=== PATIENT | female | born 2000 | race Caucasian/White ===

== ENCOUNTER → 2024-04-09 10:31 | Outpatient (BNVA) | payer SELFPAY | PROVIDERS: Visit Provider Registered Nurse | DX: Z02.79 Encounter for issue of other medical certificate (principal) ==

== ENCOUNTER 2025-08-02 19:47 | Inpatient (IN) | payer OTHER, SELFPAY ==
[2025-08-02 19:59] VITALS: BP 146/81; BP 158/90; PULSE 81; PULSE 89; RESP 19; TEMP 36.7; O2SAT 95; O2SAT 96; BMI 36.3
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
[2025-08-02 20:52] LABS: MANUAL DIFF FLAG NO
[2025-08-02 20:54] LABS: Hematocrit 44.9 % (42.0-52.0); Hemoglobin 15.7 g/dl (14.0-18.0); Imm Gran Abs Auto 0.05 X10*3/uL (0.00-0.03); Imm Gran Pct Auto 0.6 % (0.0-0.4); Lymphocytes Absolute Auto 1.9 X10*3/uL (1.2-4.9); Mean Corpuscular HGB Conc 35.0 g/dl (31.0-36.0); Mean Corpuscular Hemoglobin 30.5 pg (27.0-33.0); Mean Corpuscular Volume 87.4 fL (80.0-98.0); NRBC Abs Auto 0.000 X10*3/uL (0.0-0.012); NRBC Pct Auto 0.0 /100WBC (0.0-0.2); Platelet Count 256 X10*3/uL (160-400); Red Blood Count 5.14 X10*6/uL (4.60-5.80); White Blood Count 8.7 X10*3/uL (4.8-10.8)
[2025-08-02 21:03] LABS: Cannabinoid Screen Urine Not Detected (Not Detect)
[2025-08-02 21:11] LABS: Alanine Aminotransferase 34 U/L (0-40); Albumin Level 5.0 g/dL (3.5-5.0); Alkaline Phosphatase 56 U/L (39-117); Anion Gap 16 (12-20); Aspartate Amino Transferase 37 U/L (5-37); Blood Urea Nitrogen 14 mg/dL (9-16); Calcium 10.0 mg/dL (8.4-10.2); Carbon Dioxide 26 mmol/L (22-29); Chloride 107 mmol/L (96-108); Creatinine Clr Calc Pharmacy 123.9; Estimated Glomerular Filt Rate > 60; Magnesium 2.1 mg/dL (1.6-2.6); Potassium 4.1 mmol/L (3.3-5.1); Sodium 145 mmol/L (135-145); Total Protein 7.6 g/dL (6.5-8.0)
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
--- OUTSIDE RECORDS SUMMARY | 2025-08-02 22:17 | XMS_ITS | Clinical Summary ---
Author Organization [facility] Address [address] [place] [id number] Phone Care Team Providers Care Mds Manager Name Role Phone Kassie Mayo MD Primary Care Provider + Medications sildenafiL (REVATIO) 20 mg tablet Take 1 tablet (20 mg total) by mouth 3 (three) times a day. 20 tablet 3 02/28/2021 Active Social History Tobacco Use Types Packs/Day Years Used Date Smoking Tobacco: Never Assessed Education Answer Date Recorded Are you interested in more education? Not on ke e 03/02/2023 Are you concerned about learning? Not on file 03/02/2023 No 03/02/2023 No 03/02/2023 Digital Access Answer Date Recorded No 03/30/2023 No 03/30/2023 No 03/30/2023 Reliable internet access at home? Not on file 03/30/2023 Device with a working camera? Not on file Sex and Gender Information Value Date Recorded Sex Assigned at Male 02/15/2021 11:48 AM EDT Legal Sex Male 11:14 AM EDT Gender Identity Male 02/15/2021 11:48 AM EDT Sexual Orientation Straight 02/15/2021 11 :48 AM EDT Last Filed Vital Signs Vital Sign Reading Time Taken Comments Blood Pressure 116/76 02/28/2021 2:07 PM EDT Pulse 81 02/28/2021 2:07 PM EDT Temperature - - Respiratory Rate - - Oxygen Saturation 96% 02/28/2021 2:07 PM EDT Inhaled Oxygen Concentration - - Weight - - Height - - Body Mass Index - - Plan of Treatment Health Maintenance Due Date Last Done Comments Adult Td,Tdap Booster 2000 DEPRESSION SCREENING 2012 SMOKING Hx and SMOKELESS TOBACCO SCREENING 02/08/2013 HPV VACCINES (1 - Male 3-dos e series) 02/08/2015 HEPATITIS C SCREENING 02/08/2018 HIV ONE-TIME SCREENING (18-6 5 YEARS) 02/08/2018 INFLUENZA VACCINE (#1) 2025 COVID-19 VACCINE (2 - 2024-2 6 season) 2025 03/22/2021 MENINGOCOCCAL VACCINES (B) Completed 08/28, 07/15/2017 HEPATITIS A VACCINES Aged Out No long er eligible based on patient's age to complete this topic HIB VACCINES Aged Out No longer eligi ble based on patient's age to complete this topic MENINGOCOCCAL VACCINES (ACWY) Aged Out No longer eligible based on patient's age to complete this topic PNEUMOCOCCAL VACCINES (0-49 years) Aged Out No longer eligible b ased on patient's age to complete this topic Medical Devices Not on file Insurance [employer] [facility] Care Teams Mds Manager Relationship Specialty Start Date End Date Kassie Mayo MD [address] [place] [id number] PCP - General Adolescent Medicine 02/15/21 Additional Source Comments The information contained in this document represents components of the legal health record. It is not the complete legal health record.[facility]
[2025-08-03 07:00] VITALS: BP 122/53; PULSE 62; RESP 17; TEMP 36.7; O2SAT 96
--- NOTE | 2025-08-03 08:45 | ECG_ITS ---
Test Reason : R/O PROLONGED QT Blood Pressure : */* mmHG Vent. Rate : 71 BPM Atrial Rate : 71 BPM P-R Int : 174 ms QRS Dur : 100 ms QT Int : 410 ms P-R-T Axes : 38 47 18 degrees QTcB Int : 445 ms Normal sinus rhythm Normal ECG No previous ECGs available Referred By: Latrice Riggins Electronically Signed By: SILVER BARTHOLOMEW
--- NOTE | 2025-08-03 09:13 | PC.NURSE ---
Assumed care, report received. Pt sleeps in, he is calm and cooperative for an EKG, and is given his breakfast. he continues to endorse SI and feels angry and depressed.
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
[2025-08-03 14:10] VITALS: BP 138/81; PULSE 78; RESP 17; TEMP 36.6; O2SAT 96
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
--- NOTE | 2025-08-03 17:05 | PC.NURSE ---
pt declined flu vaccine at this time
[2025-08-03 19:10] VITALS: BP 134/86; PULSE 82; RESP 16; TEMP 36.9; O2SAT 94
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
[2025-08-04 07:51] VITALS: BP 107/53; PULSE 63; RESP 16; TEMP 36.7; O2SAT 97
[2025-08-04 08:26] LABS: Hemoglobin A1C 125.2650 umol/L; Total Hemoglobin (HGBA1C) 4024.2166 umol/L
--- NOTE | 2025-08-04 16:12 | HO.PSYCHPN ---
Subjective Subjective Date of Service: 08/04/25 Reason For Visit: si with plan Subjective Notes: Conditional Voluntary Interim History: Keeping to self. Patient reports feeling depressed ; pt stated, I've been feeling this way since I was 5. When I'm in stressful situations it gets too much and I feel suicidal . He reports passive suicidal ideation at this time; pt stated, I'd be okay if I didnt' wake up . denies HI/VH/AH. He reports poor sleep last night. [place] level to be drawn on 08/08/25. Pt retracted 3 day notice but is requesting to be discharged on Saturday08/09/25 so he can return to work. Continue tx plan. Medication Compliance: Yes Side effects from medications: No Attending Groups: No Mental Status Exam Mental Status Exam Narrative: Pt is alert and oriented; behavior is cooperative and calm; dressed in casual attire; mood is described as depressed ; eye contact appropriate; Speech is normal rate, volume and not pressured; thought process is organized; Thought content is on tx; denies HI/VH/AH. Passive SI. Diagnostics Vital Signs (24Hr): Vital Signs - 24 hr 08/03/25 19:10 08/04/25 07:51 Temperature 98.5 F 98.1 F Pulse Rate 82 63 Respiratory Rate 16 16 Blood Pressure 134/86 107/53 L Pulse Oximetry 94 97 Oxygen Delivery Method Room Air Room Air BMI result Body Mass Index 36.3 Labs 08/02/25 20:40 08/02/25 20:40 Labs: Laboratory Results - last 48 hr 08/02/25 08/02/25 08/04/25 20:40 20:41 07:59 WBC 8.7 RBC 5.14 Hgb 15.7 Hct 44.9 MCV 87.4 MCH 30.5 MCHC 35.0 RDW 13.3 Plt Count 256 MPV 8.3 L Immature Gran % (Auto) 0.6 H Neut % (Auto) 65.5 Lymph % (Auto) 21.9 [place] % (Auto) 6.6 Eos % (Auto) 4.9 H Baso % (Auto) 0.5 Lymph # (Auto) 1.9 [place] # (Auto) 0.6 Eos # (Auto) 0.4 Baso # (Auto) 0.0 Abs Immat Gran (auto) 0.05 H Absolute Neuts (auto) 5.7 Absolute Nucleated RBC 0.000 Nucleated RBC % (auto) 0.0 Sodium 145 Potassium 4.1 Chloride 107 Carbon Dioxide 26 Anion Gap 16 BUN 14 Creatinine 1.19 Estim Creat Clear Calc 123.9 Estimated GFR > 60 Random Glucose 97 Estimat Average Glucose 97 Hemoglobin A1c % 5.0 Calcium 10.0 Magnesium 2.1 Total Bilirubin 0.5 AST 37 ALT 34 Alkaline Phosphatase 56 Total Protein 7.6 Albumin 5.0 Urine Opiates Screen Not Detected Ur Buprenorphine Scrn Not Detected Ur Oxycodone Screen Not Detected Urine Methadone Screen Not Detected Urine Fentanyl Screen Not Detected Ur Barbiturates Screen Not Detected Ur Phencyclidine Scrn Not Detected Ur Amphetamines Screen Not Detected U Benzodiazepines Scrn Not Detected Urine Cocaine Screen Not Detected U Marijuana (THC) Screen Not Detected Ethyl Alcohol < 10 Medications Medications Current Medications Acetaminophen (Acetaminophen 325 Mg Tablet) 650 mg PO Q6H PRN PRN Reason: Headache/Pain, Scale 1-10 Al Hydroxide/Mg Hydroxide (Magnesium Hydrox/Alum Hydrox 30 Ml Oral.Susp) 30 ml PO Q6H PRN PRN Reason: Heartburn/Nausea Hydroxyzine HCl (Hydroxyzine Hcl 25 Mg Tablet) 25 mg PO Q6H PRN PRN Reason: mild anxiety [place] Carbonate ([place] Carbonate 300 Mg Capsule) 600 mg PO BEDTIME [facility] Last Admin: 08/03/25 21:26 Dose: 600 mg Magnesium Hydroxide (Milk Of Magnesia 30 Ml Oral.Susp) 30 ml PO DAILY PRN PRN Reason: Constipation Nicotine (Nicotine 21 Mg Patch.Td24) 21 mg TRANSDERMA DAILY PRN PRN Reason: nicotine craving Nicotine Polacrilex (Nicotine Polacrilex 2 Mg Gum) 2 mg BUCCAL Q2H PRN PRN Reason: Nicotine Cravings Olanzapine (Olanzapine 5 Mg Tablet) 5 mg PO BID PRN PRN Reason: agitation Last Admin: 08/04/25 04:30 Dose: 5 mg Omeprazole (Omeprazole 20 Mg Capsule.Dr) 20 mg PO DAILY@0630 [facility] Last Admin: 08/04/25 06:47 Dose: 20 mg Trazodone HCl (Trazodone Hcl 50 Mg Tablet) 50 mg PO BEDTIME MRX1 PRN PRN Reason: Insomnia Allergies Allergies Allergy/AdvReac Type Severity Reaction Status Date / Time amoxicillin Allergy Facial Verified 08/02/25 20:17 Swelling seafood Allergy Facial Verified 08/02/25 20:17 Swelling Assessment & Plan Assessment & Plan (1) MDD (major depressive disorder): Status: Acute Code(s): F32.9 - Major depressive disorder, single episode, unspecified (2) PTSD (post-traumatic stress disorder): Status: Acute Code(s): F43.10 - Post-traumatic stress disorder, unspecified (3) Borderline personality disorder: Status: Acute Code(s): F60.3 - Borderline personality disorder (4) Suicidal ideation: Status: Acute Code(s): R45.851 - Suicidal ideations (5) ADHD: Status: Acute Code(s): F90.9 - Attention-deficit hyperactivity disorder, unspecified type Plan Patient is a 25 year-old, , single [place] speaking with history, PTSD, MDD, borderline personality disorder, ADHD who was BIBA secondary to endorsing SI with plan to drive into a guard rail. Patient was googling how fast to drive in order to end the life. Reports chronic depression, stemming from 5 years old. Patient has been struggling with chronic depression since the age of 5. Recently stress at work and a break up with the in the past year as precipitants. Reports multiple suicide attempts in the past 5, 12, 16, 20, and 21. He attempted to overdose in the past, tried to hang himself with a belt, and tried choking himself out and suffocating himself as his prior attempts. History of hospitalization in the past. Patient currently with a friend-Hayley and he has been living with her for a past 5 months. Housing is considered being stable. Per Hayley, patient has is sex and porn addiction as he has been working on this with his outpatient therapist. Patient can display Predator behaviors and often hug and kiss female without the permission. Upon assessment, patient reports some mood swing, impulsive with racing thoughts, he can be happy happy and then sad. Reported that he can be awake more than 24 hours without sleep, and then sleep a lot. Same with eating habits. Patient reported that he either not eating for couple of days or eating too much. It seems to me that patient having some mood component of Bipolar that he can get benefit from lithium which also target the chronic SI. Therefore, I discussed with patient regarding lithium, he is receptive. Future plan will possible start on SSRI for sexually hyperactivity asked for now we do not know if he has displaced any manic episode before. The symptoms he expressed and reports seems not related to ADHD. He has been trying a couple ADHD medication when he was younger, none of them working, they are in fact make him agitated. Formulation/clinical reasoning: increasing in depression, chronic SI with most recent plan to drive his car fast to a guard rails, impulsive, multiple suicide attempts in the past, has sex and porn addiction that could put him at risk. Hx of PTSD, ADHD, BPD, MDD, ?bipolar with mood swings, driving recklessly. Given the above information, patient would be benefit to be in restrictive environment for his own safety, the safety of others, medication management, and refer patient to psychiatric services to continue with medication as aftercare. 08/03/25: start on [place] 600mg at HS for mood Will check level in 5 days. Future plan: once mood is more stable, would benefit on SSRI for sexually addiction/hyperactivies. Discuss with patient regarding medication indication and possible side effects discuss. Patient is receptive with the plan. Patient also educated on Negative effects on NSAIDs combination with [place]. Will order some lab works: CMP, TSH with reflex T4. A1C. Will continue to monitor for Kidney functions. 08/04: Keeping to self. Patient reports feeling depressed ; pt stated, I've been feeling this way since I was 5. When I'm in stressful situations it gets too much and I feel suicidal . He reports passive suicidal ideation at this time; pt stated, I'd be okay if I didnt' wake up . denies HI/VH/AH. He reports poor sleep last night. [place] level to be drawn on 08/08/25. Pt retracted 3 day notice but is requesting to be discharged on Saturday08/09/25 so he can return to work. Continue tx plan. Plan Patient on 15 minute checks for safety. Admitted to M3. signed 3 day notice. Potential to retract for further treatment. Work with treatment team to do collateral Possible of Bipolar, with chronic SI: lithium would be a good fit Patient educated on: diagnosis, medication risk/benefits and therapeutic strategies Reason for continued inpatient stay Substantial Risk for: med/psych decompensation Time Spent With Patient Time: Total time managing care of this patient today _20___ minutes.
[2025-08-04 19:20] VITALS: BP 111/57; PULSE 56; RESP 16; TEMP 36.7; O2SAT 95
[2025-08-05 07:00] VITALS: BMI 37.1
[2025-08-05 07:45] VITALS: BP 106/60; PULSE 54; RESP 16; TEMP 36.8; O2SAT 98
--- NOTE | 2025-08-05 08:46 | HO.PSYCHPN ---
Subjective Subjective Date of Service: 08/05/25 Reason For Visit: si with plan Subjective Notes: 3 Day Interim History: Active on unit. attending groups. Patient reports feeling depressed and anxious ; he reports feeling home sick today. denies any side effects from medications. denies HI/VH/AH. He reports poor sleep last night; started on Trazodone 100mg PO bedtime;risks/benefits reviewed, pt agreed to trial. He reports passive SI with no plan. Medication Compliance: Yes Side effects from medications: No Attending Groups: Yes Mental Status Exam Mental Status Exam Narrative: Pt is alert and oriented; behavior is cooperative and calm; dressed in casual attire; mood is described as depressed and anxious ; eye contact appropriate; Speech is normal rate, volume and not pressured; thought process is organized; Thought content is on tx; denies HI/VH/AH. Passive SI. Diagnostics Vital Signs (24Hr): Vital Signs - 24 hr 08/04/25 19:20 08/05/25 07:45 Temperature 98.1 F 98.3 F Pulse Rate 56 54 Respiratory Rate 16 16 Blood Pressure 111/57 L 106/60 Pulse Oximetry 95 98 Oxygen Delivery Method Room Air Room Air BMI result Body Mass Index 36.3 Labs 08/02/25 20:40 08/05/25 08:24 Labs: Laboratory Results - last 48 hr 08/04/25 07:59 Estimat Average Glucose 97 Hemoglobin A1c % 5.0 Medications Medications Current Medications Acetaminophen (Acetaminophen 325 Mg Tablet) 650 mg PO Q6H PRN PRN Reason: Headache/Pain, Scale 1-10 Al Hydroxide/Mg Hydroxide (Magnesium Hydrox/Alum Hydrox 30 Ml Oral.Susp) 30 ml PO Q6H PRN PRN Reason: Heartburn/Nausea Hydroxyzine HCl (Hydroxyzine Hcl 25 Mg Tablet) 25 mg PO Q6H PRN PRN Reason: mild anxiety [place] Carbonate ([place] Carbonate 300 Mg Capsule) 600 mg PO BEDTIME [facility] Last Admin: 08/04/25 23:28 Dose: 600 mg Magnesium Hydroxide (Milk Of Magnesia 30 Ml Oral.Susp) 30 ml PO DAILY PRN PRN Reason: Constipation Nicotine (Nicotine 21 Mg Patch.Td24) 21 mg TRANSDERMA DAILY PRN PRN Reason: nicotine craving Nicotine Polacrilex (Nicotine Polacrilex 2 Mg Gum) 2 mg BUCCAL Q2H PRN PRN Reason: Nicotine Cravings Olanzapine (Olanzapine 5 Mg Tablet) 5 mg PO BID PRN PRN Reason: agitation Last Admin: 08/04/25 04:30 Dose: 5 mg Omeprazole (Omeprazole 20 Mg Capsule.) 20 mg PO DAILY@0630 [facility] Last Admin: 08/05/25 06:38 Dose: 20 mg Trazodone HCl (Trazodone Hcl 50 Mg Tablet) 50 mg PO BEDTIME MRX1 PRN PRN Reason: Insomnia Allergies Allergies Allergy/AdvReac Type Severity Reaction Status Date / Time amoxicillin Allergy Facial Verified 08/02/25 20:17 Swelling seafood Allergy Facial Verified 08/02/25 20:17 Swelling Assessment & Plan Assessment & Plan (1) MDD (major depressive disorder): Status: Acute Code(s): F32.9 - Major depressive disorder, single episode, unspecified (2) PTSD (post-traumatic stress disorder): Status: Acute Code(s): F43.10 - Post-traumatic stress disorder, unspecified (3) Borderline personality disorder: Status: Acute Code(s): F60.3 - Borderline personality disorder (4) Suicidal ideation: Status: Acute Code(s): R45.851 - Suicidal ideations (5) ADHD: Status: Acute Code(s): F90.9 - Attention-deficit hyperactivity disorder, unspecified type Plan Patient is a 25 year-old, , single [place]an speaking with history, PTSD, MDD, borderline personality disorder, ADHD who was BIBA secondary to endorsing SI with plan to drive into a guard rail. Patient was googling how fast to drive in order to end the life. Reports chronic depression, stemming from 5 years old. Patient has been struggling with chronic depression since the age of 5. Recently stress at work and a break up with the in the past year as precipitants. Reports multiple suicide attempts in the past 5, 12, 16, 20, and 21. He attempted to overdose in the past, tried to hang himself with a belt, and tried choking himself out and suffocating himself as his prior attempts. History of hospitalization in the past. Patient currently with a friend-Hayley and he has been living with her for a past 5 months. Housing is considered being stable. Per Hayley, patient has is sex and porn addiction as he has been working on this with his outpatient therapist. Patient can display Predator behaviors and often hug and kiss female without the permission. Upon assessment, patient reports some mood swing, impulsive with racing thoughts, he can be happy happy and then sad. Reported that he can be awake more than 24 hours without sleep, and then sleep a lot. Same with eating habits. Patient reported that he either not eating for couple of days or eating too much. It seems to me that patient having some mood component of Bipolar that he can get benefit from lithium which also target the chronic SI. Therefore, I discussed with patient regarding lithium, he is receptive. Future plan will possible start on SSRI for sexually hyperactivity asked for now we do not know if he has displaced any manic episode before. The symptoms he expressed and reports seems not related to ADHD. He has been trying a couple ADHD medication when he was younger, none of them working, they are in fact make him agitated. Formulation/clinical reasoning: increasing in depression, chronic SI with most recent plan to drive his car fast to a guard rails, impulsive, multiple suicide attempts in the past, has sex and porn addiction that could put him at risk. Hx of PTSD, ADHD, BPD, MDD, ?bipolar with mood swings, driving recklessly. Given the above information, patient would be benefit to be in restrictive environment for his own safety, the safety of others, medication management, and refer patient to psychiatric services to continue with medication as aftercare. 08/03/25: start on [place] 600mg at HS for mood Will check level in 5 days. Future plan: once mood is more stable, would benefit on SSRI for sexually addiction/hyperactivies. Discuss with patient regarding medication indication and possible side effects discuss. Patient is receptive with the plan. Patient also educated on Negative effects on NSAIDs combination with [place]. Will order some lab works: CMP, TSH with reflex T4. A1C. Will continue to monitor for Kidney functions. 08/04: Keeping to self. Patient reports feeling depressed ; pt stated, I've been feeling this way since I was 5. When I'm in stressful situations it gets too much and I feel suicidal . He reports passive suicidal ideation at this time; pt stated, I'd be okay if I didnt' wake up . denies HI/VH/AH. He reports poor sleep last night. [place] level to be drawn on 08/08/25. Pt retracted 3 day notice but is requesting to be discharged on Saturday08/09/25 so he can return to work. Continue tx plan. 08/05: Active on unit. attending groups. Patient reports feeling depressed and anxious ; he reports feeling home sick today. denies any side effects from medications. denies HI/VH/AH. He reports poor sleep last night; started on Trazodone 100mg PO bedtime;risks/benefits reviewed, pt agreed to trial. He reports passive SI with no plan. Plan Patient on 15 minute checks for safety. Admitted to [facility]. signed 3 day notice. Potential to retract for further treatment. Work with treatment team to do collateral Possible of Bipolar, with chronic SI: lithium would be a good fit Patient educated on: diagnosis, medication risk/benefits and therapeutic strategies Reason for continued inpatient stay Substantial Risk for: med/psych decompensation Time Spent With Patient Time: Total time managing care of this patient today _20___ minutes.
[2025-08-05 09:09] LABS: Alanine Aminotransferase 39 U/L (0-40); Albumin Level 4.8 g/dL (3.5-5.0); Alkaline Phosphatase 60 U/L (39-117); Anion Gap 11 (12-20); Aspartate Amino Transferase 42 U/L (5-37); Blood Urea Nitrogen 12 mg/dL (9-16); Calcium 9.6 mg/dL (8.4-10.2); Carbon Dioxide 28 mmol/L (22-29); Chloride 106 mmol/L (96-108); Cholesterol 206 mg/dL (<200); Creatinine Clr Calc Pharmacy 130.5; Estimated Glomerular Filt Rate > 60; Free T4 (Free Thyroxine) 0.80 ng/dL (0.71-1.85); HDL Cholesterol 32 mg/dL (>40); Potassium 4.2 mmol/L (3.3-5.1); Sodium 141 mmol/L (135-145); Thyroid Stimulating Hormone 0.41 uIU/mL (0.32-4.0); Total Protein 7.8 g/dL (6.5-8.0); Triglycerides 591 mg/dL (<150)
[2025-08-05 19:48] VITALS: BP 134/73; PULSE 74; RESP 16; TEMP 36.7; O2SAT 96
[2025-08-06 07:10] VITALS: BP 104/55; PULSE 60; RESP 16; TEMP 36.5; O2SAT 96
--- NOTE | 2025-08-06 08:48 | P.PNPSI_ITS ---
Subjective Subjective Date of Service: 08/06/25 Reason For Visit: si with plan Subjective Notes: 3 Day Interim History: Active on unit. attending groups. Patient reports feeling better today; pt stated, I feel calmer on the medication. I'm not feeling suicidal . denies SI/HI/VH/AH. 3 day up on 08/09/25. [place] level ordered for 08/08/25. Continue tx plan. Medication Compliance: Yes Side effects from medications: No Attending Groups: Yes Mental Status Exam Mental Status Exam Narrative: Pt is alert and oriented; behavior is cooperative and calm; dressed in casual attire; mood is described as calmer ; eye contact appropriate; Speech is normal rate, volume and not pressured; thought process is organized; Thought content is on tx; denies SI/HI/VH/AH. Diagnostics Vital Signs (24Hr): Vital Signs - 24 hr 08/05/25 19:48 08/06/25 07:10 Temperature 98.1 F 97.7 F Pulse Rate 74 60 Respiratory Rate 16 16 Blood Pressure 134/73 104/55 L Pulse Oximetry 96 96 Oxygen Delivery Method Room Air Room Air BMI result Body Mass Index 37.1 Labs 08/02/25 20:40 08/05/25 08:24 Labs: Laboratory Results - last 48 hr 08/05/25 08:24 Sodium 141 Potassium 4.2 Chloride 106 Carbon Dioxide 28 Anion Gap 11 L BUN 12 Creatinine 1.13 Estim Creat Clear Calc 130.5 Estimated GFR > 60 Random Glucose 88 Calcium 9.6 Total Bilirubin 0.4 AST 42 H ALT 39 Alkaline Phosphatase 60 Total Protein 7.8 Albumin 4.8 Triglycerides 591 H Cholesterol 206 H LDL Cholesterol, Calc TNP HDL Cholesterol 32 L TSH 0.41 Free T4 0.80 Medications Medications Current Medications Acetaminophen (Acetaminophen 325 Mg Tablet) 650 mg PO Q6H PRN PRN Reason: Headache/Pain, Scale 1-10 Al Hydroxide/Mg Hydroxide (Magnesium Hydrox/Alum Hydrox 30 Ml Oral.Susp) 30 ml PO Q6H PRN PRN Reason: Heartburn/Nausea Clonidine HCl (Clonidine Hcl 0.1 Mg Tablet) 0.1 mg PO BID PRN; Protocol PRN Reason: Anxiety [place] Carbonate ([place] Carbonate 300 Mg Capsule) 600 mg PO BEDTIME [facility] Last Admin: 08/05/25 22:05 Dose: 600 mg Magnesium Hydroxide (Milk Of Magnesia 30 Ml Oral.Susp) 30 ml PO DAILY PRN PRN Reason: Constipation Nicotine (Nicotine 21 Mg Patch.Td24) 21 mg TRANSDERMA DAILY PRN PRN Reason: nicotine craving Nicotine Polacrilex (Nicotine Polacrilex 2 Mg Gum) 2 mg BUCCAL Q2H PRN PRN Reason: Nicotine Cravings Omeprazole (Omeprazole 20 Mg Capsule.Dr) 20 mg PO DAILY@0630 [facility] Last Admin: 08/06/25 06:49 Dose: 20 mg Trazodone HCl (Trazodone Hcl 100 Mg Tablet) 100 mg PO BEDTIME [facility] Last Admin: 08/05/25 22:05 Dose: 100 mg Allergies Allergies Allergy/AdvReac Type Severity Reaction Status Date / Time amoxicillin Allergy Facial Verified 08/02/25 20:17 Swelling seafood Allergy Facial Verified 08/02/25 20:17 Swelling Assessment & Plan Assessment & Plan (1) MDD (major depressive disorder): Status: Acute Code(s): F32.9 - Major depressive disorder, single episode, unspecified (2) PTSD (post-traumatic stress disorder): Status: Acute Code(s): F43.10 - Post-traumatic stress disorder, unspecified (3) Borderline personality disorder: Status: Acute Code(s): F60.3 - Borderline personality disorder (4) Suicidal ideation: Status: Acute Code(s): R45.851 - Suicidal ideations (5) ADHD: Status: Acute Code(s): F90.9 - Attention-deficit hyperactivity disorder, unspecified type Plan Patient is a 25 year-old, , single [place]ian speaking with history, PTSD, MDD, borderline personality disorder, ADHD who was BIBA secondary to endorsing SI with plan to drive into a guard rail. Patient was googling how fast to drive in order to end the life. Reports chronic depression, stemming from 5 years old. Patient has been struggling with chronic depression since the age of 5. Recently stress at work and a break up with the in the past year as precipitants. Reports multiple suicide attempts in the past 5, 12, 16, 20, and 21. He attempted to overdose in the past, tried to hang himself with a belt, and tried choking himself out and suffocating himself as his prior attempts. History of hospitalization in the past. Patient currently with a friend-Hayley and he has been living with her for a past 5 months. Housing is considered being stable. Per Hayley, patient has is sex and porn addiction as he has been working on this with his outpatient therapist. Patient can display Predator behaviors and often hug and kiss female without the permission. Upon assessment, patient reports some mood swing, impulsive with racing thoughts, he can be happy happy and then sad. Reported that he can be awake more than 24 hours without sleep, and then sleep a lot. Same with eating habits. Patient reported that he either not eating for couple of days or eating too much. It seems to me that patient having some mood component of Bipolar that he can get benefit from lithium which also target the chronic SI. Therefore, I discussed with patient regarding lithium, he is receptive. Future plan will possible start on SSRI for sexually hyperactivity asked for now we do not know if he has displaced any manic episode before. The symptoms he expressed and reports seems not related to ADHD. He has been trying a couple ADHD medication when he was younger, none of them working, they are in fact make him agitated. Formulation/clinical reasoning: increasing in depression, chronic SI with most recent plan to drive his car fast to a guard rails, impulsive, multiple suicide attempts in the past, has sex and porn addiction that could put him at risk. Hx of PTSD, ADHD, BPD, MDD, ?bipolar with mood swings, driving recklessly. Given the above information, patient would be benefit to be in restrictive environment for his own safety, the safety of others, medication management, and refer patient to psychiatric services to continue with medication as aftercare. Plan Patient on 15 minute checks for safety. Admitted to [facility]. signed 3 day notice. Potential to retract for further treatment. Work with treatment team to do collateral Possible of Bipolar, with chronic SI: lithium would be a good fit 08/03/25: start on [place] 600mg at HS for mood Will check level in 5 days. Future plan: once mood is more stable, would benefit on SSRI for sexually addiction/hyperactivies. Discuss with patient regarding medication indication and possible side effects discuss. Patient is receptive with the plan. Patient also educated on Negative effects on NSAIDs combination with [place]. Will order some lab works: CMP, TSH with reflex T4. A1C. Will continue to monitor for Kidney functions. 08/04: Keeping to self. Patient reports feeling depressed ; pt stated, I've been feeling this way since I was 5. When I'm in stressful situations it gets too much and I feel suicidal . He reports passive suicidal ideation at this time; pt stated, I'd be okay if I didnt' wake up . denies HI/VH/AH. He reports poor sleep last night. [place] level to be drawn on 08/08/25. Pt retracted 3 day notice but is requesting to be discharged on Saturday08/09/25 so he can return to work. Continue tx plan. 08/05: Active on unit. attending groups. Patient reports feeling depressed and anxious ; he reports feeling home sick today. denies any side effects from medications. denies HI/VH/AH. He reports poor sleep last night; started on Trazodone 100mg PO bedtime;risks/benefits reviewed, pt agreed to trial. He reports passive SI with no plan. 08/06:Active on unit. attending groups. Patient reports feeling better today; pt stated, I feel calmer on the medication. I'm not feeling suicidal . denies SI/HI/VH/AH. 3 day up on 08/09/25. [place] level ordered for 08/08/25. Continue tx plan. Patient educated on: diagnosis and medication risk/benefits Reason for continued inpatient stay Substantial Risk for: med/psych decompensation Time Spent With Patient Time: Total time managing care of this patient today _20___ minutes.
[2025-08-06 20:00] VITALS: BP 139/90; PULSE 84; RESP 20; TEMP 36.7; O2SAT 98
--- NOTE | 2025-08-07 07:33 | P.PNPSI_ITS ---
Subjective Subjective Date of Service: 08/07/25 Reason For Visit: si with plan Subjective Notes: 3 Day ( 08/09/2025) Interim History: Is reporting restlessness and leg twitches/muscle twitches- day and nighttime. Did not have pre admission or in the past and believes it is med related. 3 day up on 08/09/25. [place] level ordered for 08/08/25. reports depression better. Sleeping well. Is pleasant and has been attending groups. Overall we agreed to trial propranolol which might help with some of the restlessness and review lithium dosing after level on 08/08/2025. May also consider gabapentin if needed Mental Status Exam Mental Status Exam Narrative: Pt is alert and oriented; behavior is cooperative and calm; dressed in casual attire; mood is described as calmer ; eye contact appropriate; Speech is normal rate, volume and not pressured; thought process is organized; Thought content is on tx; denies SI/HI/VH/AH. Diagnostics Vital Signs (24Hr): Vital Signs - 24 hr 08/06/25 20:00 Temperature 98.1 F Pulse Rate 84 Respiratory Rate 20 Blood Pressure 139/90 H Pulse Oximetry 98 Oxygen Delivery Method Room Air BMI result Body Mass Index 37.1 Labs 08/02/25 20:40 08/05/25 08:24 Labs: Laboratory Results - last 48 hr 08/05/25 08:24 Sodium 141 Potassium 4.2 Chloride 106 Carbon Dioxide 28 Anion Gap 11 L BUN 12 Creatinine 1.13 Estim Creat Clear Calc 130.5 Estimated GFR > 60 Random Glucose 88 Calcium 9.6 Total Bilirubin 0.4 AST 42 H ALT 39 Alkaline Phosphatase 60 Total Protein 7.8 Albumin 4.8 Triglycerides 591 H Cholesterol 206 H LDL Cholesterol, Calc TNP HDL Cholesterol 32 L TSH 0.41 Free T4 0.80 Medications Medications Current Medications Acetaminophen (Acetaminophen 325 Mg Tablet) 650 mg PO Q6H PRN PRN Reason: Headache/Pain, Scale 1-10 Al Hydroxide/Mg Hydroxide (Magnesium Hydrox/Alum Hydrox 30 Ml Oral.Susp) 30 ml PO Q6H PRN PRN Reason: Heartburn/Nausea Clonidine HCl (Clonidine Hcl 0.1 Mg Tablet) 0.1 mg PO BID PRN; Protocol PRN Reason: Anxiety [place] Carbonate ([place] Carbonate 300 Mg Capsule) 600 mg PO BEDTIME [facility] Last Admin: 08/06/25 22:33 Dose: 600 mg Magnesium Hydroxide (Milk Of Magnesia 30 Ml Oral.Susp) 30 ml PO DAILY PRN PRN Reason: Constipation Melatonin (Melatonin 3 Mg Tablet) 9 mg PO BEDTIME [facility] Last Admin: 08/06/25 22:33 Dose: 9 mg Nicotine (Nicotine 21 Mg Patch.Td24) 21 mg TRANSDERMA DAILY PRN PRN Reason: nicotine craving Nicotine Polacrilex (Nicotine Polacrilex 2 Mg Gum) 2 mg BUCCAL Q2H PRN PRN Reason: Nicotine Cravings Omeprazole (Omeprazole 20 Mg Capsule.Dr) 20 mg PO DAILY@0630 [facility] Last Admin: 08/07/25 06:34 Dose: 20 mg Trazodone HCl (Trazodone Hcl 50 Mg Tablet) 50 mg PO BEDTIME PRN PRN Reason: insomnia Allergies Allergies Allergy/AdvReac Type Severity Reaction Status Date / Time amoxicillin Allergy Facial Verified 08/02/25 20:17 Swelling seafood Allergy Facial Verified 08/02/25 20:17 Swelling Assessment & Plan Assessment & Plan (1) MDD (major depressive disorder): Status: Acute Code(s): F32.9 - Major depressive disorder, single episode, unspecified (2) PTSD (post-traumatic stress disorder): Status: Acute Code(s): F43.10 - Post-traumatic stress disorder, unspecified (3) Borderline personality disorder: Status: Acute Code(s): F60.3 - Borderline personality disorder (4) Suicidal ideation: Status: Acute Code(s): R45.851 - Suicidal ideations (5) ADHD: Status: Acute Code(s): F90.9 - Attention-deficit hyperactivity disorder, unspecified type Plan Patient is a 25 year-old, , single [place]eg[place]e speaking with history, PTSD, MDD, borderline personality disorder, ADHD who was BIBA secondary to endorsing SI with plan to drive into a guard rail. Patient was googling how fast to drive in order to end the life. Reports chronic depression, stemming from 5 years old. Patient has been struggling with chronic depression since the age of 5. Recently stress at work and a break up with the in the past year as precipitants. Reports multiple suicide attempts in the past 5, 12, 16, 20, and 21. He attempted to overdose in the past, tried to hang himself with a belt, and tried choking himself out and suffocating himself as his prior attempts. History of hospitalization in the past. Patient currently with a friend-Hayley and he has been living with her for a past 5 months. Housing is considered being stable. Per Hayley, patient has is sex and porn addiction as he has been working on this with his outpatient therapist. Patient can display Predator behaviors and often hug and kiss female without the permission. Upon assessment, patient reports some mood swing, impulsive with racing thoughts, he can be happy happy and then sad. Reported that he can be awake more than 24 hours without sleep, and then sleep a lot. Same with eating habits. Patient reported that he either not eating for couple of days or eating too much. It seems to me that patient having some mood component of Bipolar that he can get benefit from lithium which also target the chronic SI. Therefore, I discussed with patient regarding lithium, he is receptive. Future plan will possible start on SSRI for sexually hyperactivity asked for now we do not know if he has displaced any manic episode before. The symptoms he expressed and reports seems not related to ADHD. He has been trying a couple ADHD medication when he was younger, none of them working, they are in fact make him agitated. Formulation/clinical reasoning: increasing in depression, chronic SI with most recent plan to drive his car fast to a guard rails, impulsive, multiple suicide attempts in the past, has sex and porn addiction that could put him at risk. Hx of PTSD, ADHD, BPD, MDD, ?bipolar with mood swings, driving recklessly. Given the above information, patient would be benefit to be in restrictive environment for his own safety, the safety of others, medication management, and refer patient to psychiatric services to continue with medication as aftercare. Plan Patient on 15 minute checks for safety. Admitted to [facility]. signed 3 day notice. Potential to retract for further treatment. Work with treatment team to do collateral Possible of Bipolar, with chronic SI: lithium would be a good fit 08/03/25: start on [place] 600mg at HS for mood Will check level in 5 days. Future plan: once mood is more stable, would benefit on SSRI for sexually addiction/hyperactivies. Discuss with patient regarding medication indication and possible side effects discuss. Patient is receptive with the plan. Patient also educated on Negative effects on NSAIDs combination with [place]. Will order some lab works: CMP, TSH with reflex T4. A1C. Will continue to monitor for Kidney functions. 08/04: Keeping to self. Patient reports feeling depressed ; pt stated, I've been feeling this way since I was 5. When I'm in stressful situations it gets too much and I feel suicidal . He reports passive suicidal ideation at this time; pt stated, I'd be okay if I didnt' wake up . denies HI/VH/AH. He reports poor sleep last night. [place] level to be drawn on 08/08/25. Pt retracted 3 day notice but is requesting to be discharged on Saturday08/09/25 so he can return to work. Continue tx plan. 08/05: Active on unit. attending groups. Patient reports feeling depressed and anxious ; he reports feeling home sick today. denies any side effects from medications. denies HI/VH/AH. He reports poor sleep last night; started on Trazodone 100mg PO bedtime;risks/benefits reviewed, pt agreed to trial. He reports passive SI with no plan. 08/06:Active on unit. attending groups. Patient reports feeling better today; pt stated, I feel calmer on the medication. I'm not feeling suicidal . denies SI/HI/VH/AH. 3 day up on 08/09/25. [place] level ordered for 08/08/25. Continue tx plan. 08/07/25: Overall we agreed to trial propranolol which might help with some of the restlessness and review lithium dosing after level on 08/08/2025. May also consider gabapentin if needed Patient educated on: medication risk/benefits and substance abuse Informed Consent: understands Reason for continued inpatient stay Substantial Risk for: rapid decompensation Time Spent With Patient Time: Total time managing care of this patient today ____ minutes.
[2025-08-07 08:00] VITALS: BP 129/67; PULSE 65; RESP 20; TEMP 36.9; O2SAT 96
[2025-08-07 15:16] VITALS: PULSE 72
[2025-08-07 20:00] VITALS: BP 137/71; PULSE 68; RESP 17; TEMP 36.9; O2SAT 97
[2025-08-07 22:34] VITALS: BP 112/73; PULSE 68
[2025-08-08 08:00] VITALS: BP 100/53; PULSE 65; RESP 14; TEMP 36.5; O2SAT 97
[2025-08-08 08:06] VITALS: BP 100/53; PULSE 65
[2025-08-08 08:46] LABS: Hemoglobin A1C 135.8316 umol/L; Total Hemoglobin (HGBA1C) 4097.5775 umol/L
[2025-08-08 08:51] LABS: Lithium 0.34 mmol/L (0.60-1.20)
[2025-08-08 09:02] LABS: Anion Gap 12 (12-20); Blood Urea Nitrogen 13 mg/dL (9-16); Carbon Dioxide 25 mmol/L (22-29); Chloride 107 mmol/L (96-108); Creatinine Clr Calc Pharmacy 142.0; Estimated Glomerular Filt Rate > 60; Potassium 4.2 mmol/L (3.3-5.1); Sodium 140 mmol/L (135-145)
--- NOTE | 2025-08-08 11:03 | P.PNPSI_ITS ---
Subjective Subjective Date of Service: 08/08/25 Reason For Visit: si with plan Interim History: Slightly less restlessness and leg twitches/muscle twitches- day and nighttime. [place] level today 0.34. Still reports depression better. Sleeping well. Is pleasant and has been attending groups. Ref muscle twitches, lithium leve is low so no real room to lwoer lithium, so will trial gabapentin. Otherwise 3 day up on 08/09/25. Medication Compliance: Yes Side effects from medications: No Attending Groups: Yes Review of Systems Acute medical concerns: No Review of Systems Review of Systems Nothing acute Mental Status Exam Mental Status Exam Narrative: Pt is alert and oriented; behavior is cooperative and calm; dressed in casual attire; mood is described as getting better ; eye contact appropriate; Speech is normal rate, volume and not pressured; thought process is organized; Thought content is on tx; denies SI/HI/VH/AH. Diagnostics Vital Signs (24Hr): Vital Signs - 24 hr 08/07/25 15:16 08/07/25 20:00 08/07/25 22:34 Temperature 98.5 F Pulse Rate 72 68 68 Respiratory Rate 17 Blood Pressure 137/71 112/73 Pulse Oximetry 97 Oxygen Delivery Method Room Air 08/08/25 08:00 08/08/25 08:06 Temperature 97.7 F Pulse Rate 65 65 Respiratory Rate 14 Blood Pressure 100/53 L 100/53 L Pulse Oximetry 97 Oxygen Delivery Method Room Air BMI result Body Mass Index 37.1 Labs 08/02/25 20:40 08/08/25 08:18 Labs: Laboratory Results - last 48 hr 08/08/25 08:18 Sodium 140 Potassium 4.2 Chloride 107 Carbon Dioxide 25 Anion Gap 12 BUN 13 Creatinine 1.05 Estim Creat Clear Calc 142.0 Estimated GFR > 60 Estimat Average Glucose 103 Hemoglobin A1c % 5.2 TSH 1.03 [place] 0.34 L Medications Medications Current Medications Acetaminophen (Acetaminophen 325 Mg Tablet) 650 mg PO Q6H PRN PRN Reason: Headache/Pain, Scale 1-10 Al Hydroxide/Mg Hydroxide (Magnesium Hydrox/Alum Hydrox 30 Ml Oral.Susp) 30 ml PO Q6H PRN PRN Reason: Heartburn/Nausea Clonidine HCl (Clonidine Hcl 0.1 Mg Tablet) 0.1 mg PO BID PRN; Protocol PRN Reason: Anxiety [place] Carbonate ([place] Carbonate 300 Mg Capsule) 600 mg PO BEDTIME [facility] Last Admin: 08/07/25 22:35 Dose: 600 mg Magnesium Hydroxide (Milk Of Magnesia 30 Ml Oral.Susp) 30 ml PO DAILY PRN PRN Reason: Constipation Melatonin (Melatonin 3 Mg Tablet) 9 mg PO BEDTIME [facility] Last Admin: 08/07/25 22:34 Dose: 9 mg Nicotine (Nicotine 21 Mg Patch.Td24) 21 mg TRANSDERMA DAILY PRN PRN Reason: nicotine craving Nicotine Polacrilex (Nicotine Polacrilex 2 Mg Gum) 2 mg BUCCAL Q2H PRN PRN Reason: Nicotine Cravings Omeprazole (Omeprazole 20 Mg Capsule.Dr) 20 mg PO DAILY@0630 [facility] Last Admin: 08/08/25 06:41 Dose: 20 mg Propranolol HCl (Propranolol Hcl 20 Mg Tablet) 20 mg PO TID [facility]; Protocol Last Admin: 08/08/25 08:06 Dose: 20 mg Trazodone HCl (Trazodone Hcl 50 Mg Tablet) 50 mg PO BEDTIME PRN PRN Reason: insomnia Allergies Allergies Allergy/AdvReac Type Severity Reaction Status Date / Time amoxicillin Allergy Facial Verified 08/02/25 20:17 Swelling seafood Allergy Facial Verified 08/02/25 20:17 Swelling Assessment & Plan Assessment & Plan (1) MDD (major depressive disorder): Status: Acute Code(s): F32.9 - Major depressive disorder, single episode, unspecified (2) PTSD (post-traumatic stress disorder): Status: Acute Code(s): F43.10 - Post-traumatic stress disorder, unspecified (3) Borderline personality disorder: Status: Acute Code(s): F60.3 - Borderline personality disorder (4) Suicidal ideation: Status: Acute Code(s): R45.851 - Suicidal ideations (5) ADHD: Status: Acute Code(s): F90.9 - Attention-deficit hyperactivity disorder, unspecified type Plan Patient is a 25 year-old, , single Pakistani speaking with history, PTSD, MDD, borderline personality disorder, ADHD who was BIBA secondary to endorsing SI with plan to drive into a guard rail. Patient was googling how fast to drive in order to end the life. Reports chronic depression, stemming from 5 years old. Patient has been struggling with chronic depression since the age of 5. Recently stress at work and a break up with the in the past year as precipitants. Reports multiple suicide attempts in the past 5, 12, 16, 20, and 21. He attempted to overdose in the past, tried to hang himself with a belt, and tried choking himself out and suffocating himself as his prior attempts. History of hospitalization in the past. Patient currently with a friend-Hayley and he has been living with her for a past 5 months. Housing is considered being stable. Per Hayley, patient has is sex and porn addiction as he has been working on this with his outpatient therapist. Patient can display Predator behaviors and often hug and kiss female without the permission. Upon assessment, patient reports some mood swing, impulsive with racing thoughts, he can be happy happy and then sad. Reported that he can be awake more than 24 hours without sleep, and then sleep a lot. Same with eating habits. Patient reported that he either not eating for couple of days or eating too much. It seems to me that patient having some mood component of Bipolar that he can get benefit from lithium which also target the chronic SI. Therefore, I discussed with patient regarding lithium, he is receptive. Future plan will possible start on SSRI for sexually hyperactivity asked for now we do not know if he has displaced any manic episode before. The symptoms he expressed and reports seems not related to ADHD. He has been trying a couple ADHD medication when he was younger, none of them working, they are in fact make him agitated. Formulation/clinical reasoning: increasing in depression, chronic SI with most recent plan to drive his car fast to a guard rails, impulsive, multiple suicide attempts in the past, has sex and porn addiction that could put him at risk. Hx of PTSD, ADHD, BPD, MDD, ?bipolar with mood swings, driving recklessly. Given the above information, patient would be benefit to be in restrictive environment for his own safety, the safety of others, medication management, and refer patient to psychiatric services to continue with medication as aftercare. Plan Patient on 15 minute checks for safety. Admitted to M3. signed 3 day notice. Potential to retract for further treatment. Work with treatment team to do collateral Possible of Bipolar, with chronic SI: lithium would be a good fit 08/03/25: start on [place] 600mg at HS for mood Will check level in 5 days. Future plan: once mood is more stable, would benefit on SSRI for sexually addiction/hyperactivies. Discuss with patient regarding medication indication and possible side effects discuss. Patient is receptive with the plan. Patient also educated on Negative effects on NSAIDs combination with [place]. Will order some lab works: CMP, TSH with reflex T4. A1C. Will continue to monitor for Kidney functions. 08/04: Keeping to self. Patient reports feeling depressed ; pt stated, I've been feeling this way since I was 5. When I'm in stressful situations it gets too much and I feel suicidal . He reports passive suicidal ideation at this time; pt stated, I'd be okay if I didnt' wake up . denies HI/VH/AH. He reports poor sleep last night. [place] level to be drawn on 08/08/25. Pt retracted 3 day notice but is requesting to be discharged on Saturday08/09/25 so he can return to work. Continue tx plan. 08/05: Active on unit. attending groups. Patient reports feeling depressed and anxious ; he reports feeling home sick today. denies any side effects from medications. denies HI/VH/AH. He reports poor sleep last night; started on Trazodone 100mg PO bedtime;risks/benefits reviewed, pt agreed to trial. He reports passive SI with no plan. 08/06:Active on unit. attending groups. Patient reports feeling better today; pt stated, I feel calmer on the medication. I'm not feeling suicidal . denies SI/HI/VH/AH. 3 day up on 08/09/25. [place] level ordered for 08/08/25. Continue tx plan. 08/07/25: Overall we agreed to trial propranolol which might help with some of the restlessness and review lithium dosing after level on 08/08/2025. May also consider gabapentin if needed 08/08: Ref muscle twitches, lithium leve is low so no real room to lwoer lithium, so will trial gabapentin. Otherwise 3 day up on 08/09/25. Reason for continued inpatient stay Substantial Risk for: rapid decompensation Time Spent With Patient Time: Total time managing care of this patient today ____ minutes.
[2025-08-08 19:32] VITALS: BP 137/82; PULSE 74; RESP 20; TEMP 36.4; O2SAT 96
[2025-08-09 07:25] VITALS: BP 121/71; PULSE 76; RESP 18; TEMP 36.4; O2SAT 97
--- NOTE | 2025-08-09 09:42 | P.DS_ITS ---
DS: Providers Provider Date of Service: 08/09/25 Date of admission: 08/03/25 12:26 Date of discharge: 08/09/25 Primary care physician: None Physician Admitting clinician: Alfreda Gabriel Attending physician on admission: Osmin Granados Attending physician on discharge: Osmin Granados Discharging clinician: Karey Joel DS: Diagnosis Discharge Diagnosis (1) MDD (major depressive disorder): Status: Acute (2) PTSD (post-traumatic stress disorder): Status: Acute (3) Borderline personality disorder: Status: Acute (4) Suicidal ideation: Status: Acute (5) ADHD: Status: Acute DS: Medications Discharge Medications Home Medications: Home Medications ?Medication ?Instructions ?Recorded ?Confirmed No Known Home Meds 08/03/25 08/03/25 Mental Status Exam Mental Status Exam Narrative: Pt is alert and oriented; behavior is cooperative and calm; dressed in casual attire; mood is described as good ; eye contact appropriate; Speech is normal rate, volume and not pressured; thought process is organized; Thought content is on discharge; denies SI/HI/VH/AH. Data Data Completed and Pending Completed studies during hospitalization [Text1]: 08/02/25 08/02/25 08/04/25 20:40 20:41 07:59 WBC 8.7 RBC 5.14 Hgb 15.7 Hct 44.9 MCV 87.4 MCH 30.5 MCHC 35.0 RDW 13.3 Plt Count 256 MPV 8.3 L Immature Gran % (Auto) 0.6 H Neut % (Auto) 65.5 Lymph % (Auto) 21.9 [place] % (Auto) 6.6 Eos % (Auto) 4.9 H Baso % (Auto) 0.5 Lymph # (Auto) 1.9 [place] # (Auto) 0.6 Eos # (Auto) 0.4 Baso # (Auto) 0.0 Abs Immat Gran (auto) 0.05 H Absolute Neuts (auto) 5.7 Absolute Nucleated RBC 0.000 Nucleated RBC % (auto) 0.0 Sodium 145 Potassium 4.1 Chloride 107 Carbon Dioxide 26 Anion Gap 16 BUN 14 Creatinine 1.19 Estim Creat Clear Calc 123.9 Estimated GFR > 60 Random Glucose 97 Estimat Average Glucose 97 Hemoglobin A1c % 5.0 Calcium 10.0 Magnesium 2.1 Total Bilirubin 0.5 AST 37 ALT 34 Alkaline Phosphatase 56 Total Protein 7.6 Albumin 5.0 Triglycerides Cholesterol LDL Cholesterol, Calc HDL Cholesterol TSH Free T4 Urine Opiates Screen Not Detected Ur Buprenorphine Scrn Not Detected Ur Oxycodone Screen Not Detected Urine Methadone Screen Not Detected Urine Fentanyl Screen Not Detected Ur Barbiturates Screen Not Detected Ur Phencyclidine Scrn Not Detected Ur Amphetamines Screen Not Detected U Benzodiazepines Scrn Not Detected [place] Urine Cocaine Screen Not Detected U Marijuana (THC) Screen Not Detected Ethyl Alcohol < 10 08/05/25 08/08/25 08:24 08:18 WBC RBC Hgb Hct MCV MCH MCHC RDW Plt Count MPV Immature Gran % (Auto) Neut % (Auto) Lymph % (Auto) [place] % (Auto) Eos % (Auto) Baso % (Auto) Lymph # (Auto) [place] # (Auto) Eos # (Auto) Baso # (Auto) Abs Immat Gran (auto) Absolute Neuts (auto) Absolute Nucleated RBC Nucleated RBC % (auto) Sodium 141 140 Potassium 4.2 4.2 Chloride 106 107 Carbon Dioxide 28 25 Anion Gap 11 L 12 BUN 12 13 Creatinine 1.13 1.05 Estim Creat Clear Calc 130.5 142.0 Estimated GFR > 60 > 60 Random Glucose 88 Estimat Average Glucose 103 Hemoglobin A1c % 5.2 Calcium 9.6 Magnesium Total Bilirubin 0.4 AST 42 H ALT 39 Alkaline Phosphatase 60 Total Protein 7.8 Albumin 4.8 Triglycerides 591 H Cholesterol 206 H LDL Cholesterol, Calc TNP HDL Cholesterol 32 L TSH 0.41 1.03 Free T4 0.80 Urine Opiates Screen Ur Buprenorphine Scrn Ur Oxycodone Screen Urine Methadone Screen Urine Fentanyl Screen Ur Barbiturates Screen Ur Phencyclidine Scrn Ur Amphetamines Screen U Benzodiazepines Scrn [place] 0.34 L Urine Cocaine Screen U Marijuana (THC) Screen Ethyl Alcohol DS: Summary Hospital Course Hospital Course: Per Care team note: Patient is a 25 year-old single, Prydeinig speaking with history, PTSD, MDD, borderline Personality disorder, ADHD who was BIBA secondary to endorsing SI with plan to drive into a guard rail. Patient was googling how fast to drive in order to end the life. Reports chronic depression, stemming from 5 years old. Patient has been struggling with chronic depression since the age of 5. Recently stress at work and a break up with the in the past year as precipitants. Reports multiple suicide attempts in the past 5, 12, 16, 20, and 21. He attempted to overdose in the past, tried to hang himself with a belt, and tried choking himself out and suffocating himself as his prior attempts. History of hospitalization in the past. Patient currently with a friend-Hayley and he has been living with her for a past 5 months. Housing is considered being stable. Per Hayley, patient has is sex and porn addiction as he has been working on this with his outpatient therapist. Patient can display Predator behaviors and often hug and kiss female without the permission. On M3: this provider spent a 75 min during assessment. Prior to meet with this provider, patient also spent almost 1-2 hours with admitting RN. Patient reports that he had suicidal thoughts. I was doing with lots of situation. Everything get me to the edge, and I was looking up how to drive fast to kill myself. Hayley was in the car which she might get scared of her life but patient reports that he never has any intention to hurt others. Patient basically reports a lot of his behavior was impulsive. In the past when he was younger, when he feels stress or feeling emotional stress, he will take a walk or run outside to get rid of his angry/irritable mood that bother him. However, as an adult, he has a car and driving fast somehow matching with his stress in his mind. Reported that he could drive 100 mph in a local 20-30 mph. Reports currently still feeling like still question myself why I am here in the passive SI, denies SIB/HI/AVH. Reports history of cutting with last cut was a couple of years ago. He started cutting superficial for attention, and eventually cut deeper to get the emotional pain away. Reports chronic SI, multiple suicide attempts. He also reports that he was adopted, feeling abandoned from the family, he was placed in the foster care and residential, snf as a child. Therefore sometimes he can not trust people. Reports no legal issues. Not access to guns at home. 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 The some situation that scare him which he thinks is the root of his issues. Patient asked if we have any medications to treat sex addiction. Upon assessment, patient reports some mood swing, impulsive with racing thoughts, he can be happy happy and then sad. Reported that he can be awake more than 24 hours without sleep, and then sleep a lot. Same with eating habits. Patient reported that he either not eating for couple of days or eating too much. It seems to me that patient having some mood component of Bipolar that he can get benefit from lithium which also target the chronic SI. Therefore, I discussed with patient regarding lithium, he is receptive. Future plan will possible start on SSRI for sexually hyperactivity asked for now we do not know if he has displaced any manic episode before. The symptoms he expressed and reports seems not related to ADHD. He has been trying a couple ADHD medication when he was younger, none of them working, they are in fact make him agitated. Patient is alert and oriented x4, wearing hospital attirePassive SI, hyperverbal in a calm, pleasant, and cooperative manner. Can be impulsive per hx. Passive SI without plan or intent to hurt himself. No SIB/HI/AVH. Speech is within normal limit, normal volume and rate. Thought process is organized, linear. Thought content are within normal limit except for passive SI. No delusional or paranoid statements make. Do not appear to be psychotic. Judgment and insight poor. He sighed 3 day notice with potential to retract for medication management. He is treatment focus and wants help. Patient is a 25 year-old, , single Prydeinig speaking with history, PTSD, MDD, borderline personality disorder, ADHD who was BIBA secondary to endorsing SI with plan to drive into a guard rail. Patient was googling how fast to drive in order to end the life. Reports chronic depression, stemming from 5 years old. Patient has been struggling with chronic depression since the age of 5. Recently stress at work and a break up with the in the past year as precipitants. Reports multiple suicide attempts in the past 5, 12, 16, 20, and 21. He attempted to overdose in the past, tried to hang himself with a belt, and tried choking himself out and suffocating himself as his prior attempts. History of hospitalization in the past. Patient currently with a friend-Hayley and he has been living with her for a past 5 months. Housing is considered being stable. Per Hayley, patient has is sex and porn addiction as he has been working on this with his outpatient therapist. Patient can display Predator behaviors and often hug and kiss female without the permission. Upon assessment, patient reports some mood swing, impulsive with racing thoughts, he can be happy happy and then sad. Reported that he can be awake more than 24 hours without sleep, and then sleep a lot. Same with eating habits. Patient reported that he either not eating for couple of days or eating too much. It seems to me that patient having some mood component of Bipolar that he can get benefit from lithium which also target the chronic SI. Therefore, I discussed with patient regarding lithium, he is receptive. Future plan will possible start on SSRI for sexually hyperactivity asked for now we do not know if he has displaced any manic episode before. The symptoms he expressed and reports seems not related to ADHD. He has been trying a couple ADHD medication when he was younger, none of them working, they are in fact make him agitated. Formulation/clinical reasoning: increasing in depression, chronic SI with most recent plan to drive his car fast to a guard rails, impulsive, multiple suicide attempts in the past, has sex and porn addiction that could put him at risk. Hx of PTSD, ADHD, BPD, MDD, ?bipolar with mood swings, driving recklessly. Given the above information, patient would be benefit to be in restrictive environment for his own safety, the safety of others, medication management, and refer patient to psychiatric services to continue with medication as aftercare. Plan Patient on 15 minute checks for safety. Admitted to M3. signed 3 day notice. Potential to retract for further treatment. Work with treatment team to do collateral Possible of Bipolar, with chronic SI: lithium would be a good fit start on [place] 600mg at HS for mood Will check level in 5 days. Future plan: once mood is more stable, would benefit on SSRI for sexually addiction/hyperactivies. Discuss with patient regarding medication indication and possible side effects discuss. Patient is receptive with the plan. Patient also educated on Negative effects on NSAIDs combination with [place]. Will order some lab works: CMP, TSH with reflex T4. A1C. Will continue to monitor for Kidney functions. Keeping to self. Patient reports feeling depressed ; pt stated, I've been feeling this way since I was 5. When I'm in stressful situations it gets too much and I feel suicidal . He reports passive suicidal ideation at this time; pt stated, I'd be okay if I didnt' wake up . denies HI/VH/AH. He reports poor sleep last night. [place] level to be drawn on 08/08/25. Pt retracted 3 day notice but is requesting to be discharged on Saturday08/09/25 so he can return to work. Continue tx plan. Active on unit. attending groups. Patient reports feeling depressed and anxious ; he reports feeling home sick today. denies any side effects from medications. denies HI/VH/AH. He reports poor sleep last night; started on Trazodone 100mg PO bedtime;risks/benefits reviewed, pt agreed to trial. He reports passive SI with no plan. Active on unit. attending groups. Patient reports feeling better today; pt stated, I feel calmer on the medication. I'm not feeling suicidal . denies SI/HI/VH/AH. 3 day up on 08/09/25. [place] level ordered for 08/08/25. Continue tx plan. Overall we agreed to trial propranolol which might help with some of the restlessness and review lithium dosing after level on 08/08/2025. May also consider gabapentin if needed Ref muscle twitches, lithium leve is low so no real room to lwoer lithium, so will trial gabapentin. Otherwise 3 day up on 08/09/25. Patient reports feeling good today; pt reports he plans on following up with outpatient providers. denies SI/HI/VH/AH. Observed laughing and joking with peers. Status at Discharge Cognitive/behavioral status at discharge: Patient has insight and demonstrates good judgment in terms of wanting to pursue treatment. Patient has a safety plan that includes presenting to the closest ER or calling 911 if feeling unsafe. Functional status at discharge: independent ambulation Overall status at discharge: patient is back to baseline Time Spent with Patient Time attestation: Total time managing care of this patient today _20___ minutes. Time spent: Less than 30 minutes Discharge Plan Discharge Anticipated Discharge Date/Time: 08/09/25 10:30 Patient Disposition: Home, Self-Care Discharge Diagnosis: MDD,PTSD, ADHD, Borderline personality d/o Referrals: G[facility] Baptiste (Therapy) [Other] - 1 Week Referral Note: *Please reach out to your therapist directly to schedule a follow up appointment. Dr. Radha Mercado (Psychiatry) [Other] - 08/11/25 2:10 pm Referral Note: IN OFFICE APPOINTMENT [facility] [Provider Group] - 1 Week Referral Note: 08-04-25 [facility] was added to patients chart. Please call [phone] to schedule a follow up visit within 7-10 days of discharge. No release or PCP on file. Discharge Medications: New omeprazole 20 mg Capsule,Delayed Release(Dr/Ec) 20 mg PO DAILY@0630 30 Days Qty: 30 0RF melatonin 10 mg capsule 10 mg PO BEDTIME 30 Days Qty: 30 0RF lithium carbonate 600 mg capsule 600 mg PO BEDTIME 30 Days Qty: 30 0RF gabapentin 100 mg Capsule 100 mg PO TID 7 Days Qty: 21 0RF Discharge Orders: Discharge Order (Routine); Ordered 08/09/25 Ordered By: Karey Joel Diet: Regular diet Activity on Discharge: As tolerated Stand Alone Forms: Patient Portal Discharge page, Community Support Print Language: Prydeinig Care Plan Goals: Maintain mood and safe behaviors Take medications as prescribed Practice coping skills Continue with outpatient providers and reach out to them as needed Health Concerns: Mood stability and behaviors Plan of Treatment: Follow up with your PCP, psychiatric provider and other outpatient providers regarding above concerns Take medications as prescribed Assessment: Patient has insight and demonstrates good judgment in terms of wanting to pursue treatment. Patient has a safety plan that includes presenting to the closest ER or calling 911 if feeling unsafe. Discharge Date/Time: 08/09/25 10:33
--- NOTE | 2025-08-09 10:48 | PC.NURSE ---
Pito engages easily. Reports mood is stable, denies depression or sadness, denies SI/HI plan or intent. Denies self harming ideation. Endorses mild anxiety however states he is fine . Denies perceptual disturbances, no overt psychosis or expressed delusions. Discharge paperwork reviewed with patient, reports understanding. Medications reviewed with patient, reports understanding. All belongings taken with patient, crisis numbers provided to patient
== END 2025-08-09 10:33 | disposition home or self-care (01) | DRG 754 ==
LOC: HO.ED 08-03 12:48 → HO.PADLT16 08-03 12:50
PROVIDERS: Admitting Provider Nurse Practitioner Psychiatric/Mental Health; Emergency Provider Emergency Medicine; Responsible Provider Registered Nurse; Visit Provider Psychiatry & Neurology Psychiatry
DX: F32.9 Major depressive disorder, single episode, unspecified (principal); R45.851 Suicidal ideations; F43.10 Post-traumatic stress disorder, unspecified; F60.3 Borderline personality disorder; F90.9 Attention-deficit hyperactivity disorder, unspecified type; K21.9 Gastro-esophageal reflux disease without esophagitis; Z91.51 Personal history of suicidal behavior; Z79.899 Other long term (current) drug therapy
CPT/HCPCS: 36415; 80051; 80053; 80061; 80178; 80307; 82565; 83036; 83735; 84439; 84443; 84520; 85025; 93005; 99285; S9485

== ENCOUNTER → 2025-08-03 08:45 | Outpatient (BNV) | payer SELFPAY | PROVIDERS: Admitting Provider Nurse Practitioner Psychiatric/Mental Health; Emergency Provider Emergency Medicine; Visit Provider Internal Medicine | DX: Z13.6 Encounter for screening for cardiovascular disorders (principal) | CPT/HCPCS: 93010 ==

== ENCOUNTER → 2025-08-03 12:26 | Outpatient (BNV) | payer OTHER, SELFPAY | PROVIDERS: Admitting Provider Nurse Practitioner Psychiatric/Mental Health; Emergency Provider Emergency Medicine; Responsible Provider Registered Nurse; Visit Provider Registered Nurse | DX: F32.2 Major depressive disorder, single episode, severe without psychotic features (principal); F60.3 Borderline personality disorder; F43.11 Post-traumatic stress disorder, acute; R45.851 Suicidal ideations; F90.9 Attention-deficit hyperactivity disorder, unspecified type | CPT/HCPCS: 99231; 99232 ==

== ENCOUNTER → 2025-08-03 12:26 | Outpatient (BNV) | payer SELFPAY | PROVIDERS: Admitting Provider Nurse Practitioner Psychiatric/Mental Health; Emergency Provider Emergency Medicine; Visit Provider Nurse Practitioner Family | DX: R45.851 Suicidal ideations (principal); K21.9 Gastro-esophageal reflux disease without esophagitis | CPT/HCPCS: 99221 ==